=== PATIENT | female | born 1950 | race Caucasian/White ===

== ENCOUNTER 2022-06-06 04:37 | Day surgery (SDC) | payer OTHER ==
[2022-06-04 14:58] VITALS: BMI 35.5
[2022-06-06 11:22] VITALS: TEMP 98.2
[2022-06-06 12:20] VITALS: BP 123/64; PULSE 89; RESP 21
== END 2022-06-06 12:15 | disposition home or self-care (01) ==
LOC: JASU-ENDO 04:37
PROVIDERS: ATTEND Internal Medicine Gastroenterology
PROC: 0DB98ZX Excision of Duodenum, Via Natural or Artificial Opening Endoscopic, Diagnostic (ICD-10-PCS; 2022-06-06)
PROC: 0DB78ZX Excision of Stomach, Pylorus, Via Natural or Artificial Opening Endoscopic, Diagnostic (ICD-10-PCS; 2022-06-06)
PROC: 0DJD8ZZ Inspection of Lower Intestinal Tract, Via Natural or Artificial Opening Endoscopic (ICD-10-PCS; principal; 2022-06-06 11:00)
DX: Z12.11 Encounter for screening for malignant neoplasm of colon (principal); K57.30 Diverticulosis of large intestine without perforation or abscess without bleeding; K29.71 Gastritis, unspecified, with bleeding; K22.89 Other specified disease of esophagus; E11.9 Type 2 diabetes mellitus without complications; Z86.010 Personal history of colon polyps; Z80.0 Family history of malignant neoplasm of digestive organs; Z83.71 Family history of colonic polyps
CPT/HCPCS: 43239; G0105; 82962; 88305-TC; 88342-TC

== ENCOUNTER 2022-10-22 10:50 | Day surgery (SDC) | payer OTHER ==
[2022-10-22] MEDS ORDERED: IRON SUCROSE INJECTION 200 MG in SODIUM CHLORIDE 100 ML IVPB ONE (11:30)
[2022-10-22 12:54] VITALS: BP 112/50; PULSE 89; RESP 18; TEMP 98.4
== END 2022-10-22 14:01 | disposition home or self-care (01) ==
LOC: FINFUSION 10:50 → FM/S 10:52 → FINFUSION 14:01
PROVIDERS: ATTEND Family Medicine
PROC: 3E033GC Introduction of Other Therapeutic Substance into Peripheral Vein, Percutaneous Approach (ICD-10-PCS; principal; 2022-10-22)
DX: D50.9 Iron deficiency anemia, unspecified (principal)
CPT/HCPCS: 96365; J1756

== ENCOUNTER 2022-10-29 10:57 | Day surgery (SDC) | payer OTHER ==
[2022-10-29] MEDS ORDERED: IRON SUCROSE INJECTION 200 MG in SODIUM CHLORIDE 100 ML IVPB ONE (11:30)
[2022-10-29 12:20] VITALS: BP 111/58; PULSE 80; RESP 18; TEMP 98.1
== END 2022-10-29 12:40 | disposition home or self-care (01) ==
LOC: FINFUSION 10:57 → FM/S 10:57 → FINFUSION 12:40
PROVIDERS: ATTEND Family Medicine
PROC: 3E033GC Introduction of Other Therapeutic Substance into Peripheral Vein, Percutaneous Approach (ICD-10-PCS; principal; 2022-10-29)
DX: D50.9 Iron deficiency anemia, unspecified (principal)
CPT/HCPCS: 96365; J1756